=== PATIENT | male | born 1940 | race Hispanic/Latino ===

== ENCOUNTER 2023-04-08 16:34 | Emergency (ER) | payer SELFPAY | END 2023-04-08 17:30 | disposition home or self-care (01) | LOC: MADERS 16:34 | DX: Z00.00 Encounter for general adult medical examination without abnormal findings (principal); E78.5 Hyperlipidemia, unspecified; I10 Essential (primary) hypertension; Z79.899 Other long term (current) drug therapy; Z79.82 Long term (current) use of aspirin | CPT/HCPCS: 99283 ==